=== PATIENT | male | born 2000 ===

== ENCOUNTER → 2018-04-18 22:50 | Outpatient (REF) | payer OTHER, MEDICAID, SELFPAY ==
[2018-04-19 00:29] LABS: Thyroid Stimulating Hormone 5.17 uIU/mL (0.47-4.68)
[2018-04-19 04:25] LABS: Free T3, Triiodothyronine Free 3.28 pg/mL (2.77-5.27); T4 Total Thyroxine 7.61 ug/dL (5.5-11.0)
== END ==
LOC: LAB 22:50
PROVIDERS: Visit Provider Naturopath
DX: E05.00 Thyrotoxicosis with diffuse goiter without thyrotoxic crisis or storm (principal)
CPT/HCPCS: 36415; 84436; 84443; 84481